=== PATIENT | male | born 1940 | race Caucasian/White ===

== ENCOUNTER 2017-08-14 08:26 | Outpatient (CLI) | payer BC, MEDICARE | END 2017-08-14 08:27 | disposition home or self-care (01) | LOC: BICULT 08:26 | PROVIDERS: ATTEND Internal Medicine Nephrology | DX: N18.3 Chronic kidney disease, stage 3 (moderate) (principal) | CPT/HCPCS: 76770 ==

== ENCOUNTER 2017-11-28 09:00 | Outpatient (CLI) | payer BC, MEDICARE | END 2017-11-28 09:01 | disposition home or self-care (01) | LOC: BICULT 09:00 | PROVIDERS: ATTEND Family Medicine | DX: Z13.6 Encounter for screening for cardiovascular disorders (principal) | CPT/HCPCS: 76775 ==

== ENCOUNTER 2018-07-25 08:00 | Inpatient (IN) | payer BC, MEDICARE ==
[2018-08-01 12:26] VITALS: BMI 27.5
[2018-08-06] MEDS ORDERED: Midazolam HCl 2 mg/2 ml Vial ONE (06:22)
[2018-08-06] MEDS ORDERED: Ropivacaine 0.2% HCl/PF 20 ML ONE (06:22)
[2018-08-06] MEDS ORDERED: Fentanyl 100 MCG/2 ML VIAL ONE (06:22)
[2018-08-06] MEDS ORDERED: Lidocaine 1% (PF) 30 ML VIAL ONE (06:49)
[2018-08-06] MEDS ORDERED: Bupivacaine HCl 0.5%/Epinephrine 1:200,000/PF 30 ml Vial ONE (06:49)
[2018-08-06] MEDS ORDERED: Neomycin-Polymyxin 1 ML AMP ONE (06:49)
[2018-08-06] MEDS ORDERED: Tranexamic Acid 1,000 MG/10 ML VIAL ONE ×2 (07:24→10:33)
[2018-08-06] MEDS ORDERED: CEFAZOLIN 2 GM/50 ML BAG ONE (07:24)
[2018-08-06] MEDS ORDERED: Sodium Chloride 0.9% 100 ML ONE (07:24)
[2018-08-06] MEDS ORDERED: Ketorolac Tromethamine 30 MG/ML VIAL IVP PRN (07:41)
[2018-08-06] MEDS ORDERED: Ropivacaine HCl/PF 250 ML in Premix Bag 1 BAG NERVE BLCK SCH (07:41)
[2018-08-06] MEDS ORDERED: traMADol HCl 50 MG TAB PO PRN ×2 (07:45)
[2018-08-06] MEDS ORDERED: Fentanyl 100 MCG/2 ML VIAL SLOW IVP PRN (07:45)
[2018-08-06] MEDS ORDERED: HYDROcodone/Acetaminophen 10/325 mg Tablet PO PRN ×2 (07:45→09:48)
[2018-08-06] MEDS ORDERED: Promethazine HCl 25 MG/ML VIAL IM PRN ×3 (07:46→09:52)
[2018-08-06] MEDS ORDERED: Zolpidem Tartrate 5 MG TAB PO PRN (07:46)
[2018-08-06] MEDS ORDERED: Ondansetron PF 4 MG/2 ML Vial IVP PRN ×2 (07:46→09:48)
[2018-08-06] MEDS ORDERED: Morphine 4 MG/ML VIAL SLOW IVP PRN (09:48)
[2018-08-06] MEDS ORDERED: Acetaminophen 325 MG TAB PO PRN (09:48)
[2018-08-06] MEDS ORDERED: Promethazine HCl 25 MG/ML VIAL SLOW IVP PRN (09:52)
[2018-08-06] MEDS ORDERED: Ondansetron HCl/PF 4 MG/2 ML Vial IVP PRN (09:52)
[2018-08-06] MEDS ORDERED: TADALAFIL PO PRN (09:54)
[2018-08-06] MEDS ORDERED: Tranexamic Acid 1,000 MG in Sodium Chloride 0.9% 100 ML IVPB SCH (10:00)
[2018-08-06] MEDS ORDERED: Vancomycin HCl 1.5 GM in Sodium Chloride 0.9% 250 ML 300 ML IVPB SCH (10:00)
[2018-08-06] MEDS ORDERED: CEFAZOLIN/Water 2 GM/20 ML SYRINGE SLOW IVP SCH (10:00)
[2018-08-06] MEDS ORDERED: Ropivacaine 0.5% HCl/PF (150 MG/30 ML VIAL) ONE (10:12)
[2018-08-06] MEDS ORDERED: PHENYLEPHRINE-NS 100 MCG/ML 10 ML SYRINGE ONE (10:50)
[2018-08-06] MEDS ORDERED: Dexamethasone 20 MG/5 ML VIAL ONE (10:50)
[2018-08-06] MEDS ORDERED: PROPOFOL 200 MG/20 ML VIAL ONE (10:50)
[2018-08-06] MEDS ORDERED: Ondansetron PF 4 MG/2 ML Vial ONE (10:50)
[2018-08-06] MEDS ORDERED: Dextrose 50% Abboject 50 ML SYRINGE SLOW IVP PRN (11:32)
[2018-08-06] MEDS ORDERED: HumaLOG 300 UNITS/3 ML VIAL SC PRN (11:32)
[2018-08-06] MEDS ORDERED: Dextrose 5% in Water 1,000 ML IV PRN (11:32)
[2018-08-06] MEDS ORDERED: Acetaminophen 500 MG TAB PO PRN (11:56)
[2018-08-06] MEDS ORDERED: cloNIDine 0.1 MG TAB PO PRN (11:56)
[2018-08-06] MEDS ORDERED: Bisacodyl 5 MG TAB PO PRN (11:56)
[2018-08-06] MEDS ORDERED: Benzonatate 100 MG CAP PO PRN (11:56)
[2018-08-06] MEDS ORDERED: Nitroglycerin 0.4 MG TAB (25 Tab Bottle) SL PRN (11:56)
[2018-08-06] MEDS ORDERED: HYDROcodone/Acetaminophen 5/325 mg Tablet PO PRN (11:56)
[2018-08-06] MEDS ORDERED: Calcium Carbonate 500 MG ChewTAB PO PRN (11:56)
[2018-08-06] MEDS ORDERED: Diabetic Tussin 200 MG/10 ML UDCUP PO PRN (11:56)
[2018-08-06] MEDS ORDERED: hydrALAZINE 20 MG/ML VIAL SLOW IVP PRN (11:56)
--- NOTE | 2018-08-06 11:58 | PDOC.PN ---
- Subjective Encounter Start Date: 08/06/18 Encounter Start Time: 11:57 Subjective: s/p Left knee arthroplasty for hardware removal. -: seen and examined at bedside. chart reveiwed.PCP Dr. Scottie Orellana -: denies any CP/SOB/palpitations/Abd pain/N/V/D - Objective MAR Reviewed: Yes Vital Signs & Weight: Vital Signs (12 hours) Temp Pulse Resp BP Pulse Ox 08/06/18 10:55 97.5 F L 63 18 152/73 H 96 Weight Weight 192 lb Additional Labs: Laboratory Tests 08/01/18 08/01/18 13:05 13:05 WBC 8.1 Hgb 13.4 L Plt Count 253 Sodium 135 L Potassium 5.2 H Carbon Dioxide 22 L BUN 17 Creatinine 1.24 Phys Exam - Physical Examination Constitutional: NAD HEENT: PERRLA, moist MMs, sclera anicteric, oral pharynx no lesions Neck: no nodes, no JVD, supple, full ROM Respiratory: no wheezing, no rales, no rhonchi, clear to auscultation bilateral Cardiovascular: RRR, no significant murmur Gastrointestinal: soft, non-tender, no distention, positive bowel sounds Musculoskeletal: no edema, pulses present Neurological: non-focal, normal sensation, moves all 4 limbs Psychiatric: normal affect, A&O x 3 Skin: no rash Dx/Plan (1) Hyperkalemia Code(s): E87.5 - HYPERKALEMIA Status: Acute Comment: 08/01/18. will recheck (2) Paroxysmal atrial fibrillation Code(s): I48.0 - PAROXYSMAL ATRIAL FIBRILLATION Status: Chronic Comment: on Multaq and Eliquis at home. NSR for now.Business Advisor is . (3) CAD (coronary artery disease) Code(s): I25.10 - ATHSCL HEART DISEASE OF [place] CORONARY ARTERY W/O ANG PCTRS Status: Chronic Qualifiers: Coronary Disease-Associated Artery/Lesion type: bypass graft Comment: CABG 2000. On ASA,statin ,BB and ARMIN-I (4) HTN (hypertension) Code(s): I10 - ESSENTIAL (PRIMARY) HYPERTENSION Status: Chronic (5) DM2 (diabetes mellitus, type 2) Status: Chronic Qualifiers: Diabetes mellitus manager long term care insulin use: without manager long term care use (6) S/P left knee arthroscopy Code(s): Z98.890 - OTHER SPECIFIED POSTPROCEDURAL STATES Status: Acute - Plan plan discussed w/ family, PT/OT, incentive spirometry, out of bed/ambulate, DVT proph w/SCDs Eliquis on hold in immediate post-op period. cont ASA BID. NSR for now -: cont rest of the home meds as below,except will hold metformin -: am labs.follow BMP and H/H -: add ISS and prn anti-hypertensives -: OT/PT,pain control.rehab as an OP .IM team will follow * . Review of Systems - Review of Systems Constitutional: negative: fever, chills, sweats, weakness, malaise, other ENT: negative: Ear Pain, Ear Discharge, Nose Pain, Nose Discharge, Nose Congestion, Mouth Pain, Mouth Swelling, Throat Pain, Throat Swelling, Other Respiratory: negative: Cough, Dry, Shortness of Breath, Hemoptysis, SOB with Excertion, Pleuritic Pain, Sputum, Wheezing Cardiovascular: negative: chest pain, palpitations, orthopnea, paroxysmal nocturnal dyspnea, edema, light headedness, other Gastrointestinal: negative: Nausea, Vomiting, Abdominal Pain, Diarrhea, Constipation, Melena, Hematochezia, Other Genitourinary: negative: Dysuria, Frequency, Incontinence, Hematuria, Retention , Other Musculoskeletal: negative: Neck Pain, Shoulder Pain, Arm Pain, Back Pain, Hand Pain, Leg Pain, Foot Pain, Other Skin: negative: Rash, Lesions, Gavin, Bruising, Other Neurological: negative: Weakness, Numbness, Incoordination, Change in Speech, Confusion, Seizures, Other - Medications/Allergies Allergies/Adverse Reactions: Allergies Allergy/AdvReac Type Severity Reaction Status Date / Time No Known Allergies Allergy Verified 08/01/18 12:27 Medications: Current Medications Acetaminophen (Tylenol) 650 mg PO Q4H PRN PRN Reason: Headache/Fever or Pain Acetaminophen (Tylenol) 1,000 mg PO Q6H PRN PRN Reason: Mild Pain (1-3) Hydrocodone Bitart/Acetaminophen ([place] 10/325) 1 tab PO Q4H PRN PRN Reason: Pain (1-3) Hydrocodone Bitart/Acetaminophen ([place] 10/325) 2 tab PO Q4H PRN PRN Reason: PAIN (4-6) Hydrocodone Bitart/Acetaminophen ([place] 5/325) 1 tab PO Q4H PRN PRN Reason: Moderate Pain (4-6) Aspirin (Ecotrin) 81 mg PO BID [place] Atorvastatin Calcium (Lipitor) 40 mg PO HS [place] Benzonatate (Tessalon) 100 mg PO Q6H PRN PRN Reason: Cough Bisacodyl (Dulcolax) 10 mg PO DAILYPRN PRN PRN Reason: Constipation Calcium Carbonate (Tums) 1,000 mg PO Q4H PRN PRN Reason: Heartburn or Indigestion Carvedilol (Coreg) 12.5 mg PO BID [facility] Clonidine (Catapres) 0.1 mg PO Q4H PRN PRN Reason: SBP > 160____ Dextrose/Water (Dextrose 50%) 25 gm SLOW IVP PRN PRN PRN Reason: Hypoglycemia Dronedarone (Multaq) 400 mg PO BID-[facility] Fentanyl (Sublimaze) 50 mcg SLOW IVP Q1H PRN PRN Reason: Breakthrough Pain Ferrous Gluconate (Fergon) 324 mg PO BID [facility] Glipizide (Glucotrol) 5 mg PO QAM [facility] Glucagon (Glucagon) 1 mg IM PRN PRN PRN Reason: Hypoglycemia Guaifenesin (Robitussin Sf) 200 mg PO Q4H PRN PRN Reason: Cough Hydralazine HCl (Apresoline) 10 mg SLOW IVP Q4H PRN PRN Reason: SBP > 180 and HR < 70 Ropivacaine 250 ml/ Device 250 mls @ 10 mls/hr [facility] Sodium Chloride (Normal Saline 0.9%) 1,000 mls @ 100 mls/hr IV .Q10H [facility] Tranexamic Acid 1,000 mg/ (Sodium Chloride) 110 mls @ 200 mls/hr IVPB ONE [facility] Stop: 08/06/18 15:00 Cefazolin Sodium/Dextrose 2 gm (/ Device) 50 mls @ 100 mls/hr IVPB 0000,1600 [facility] Stop: 08/07/18 00:29 Dextrose/Water (D5w) 1,000 mls @ 0 mls/hr IV .Q0M PRN PRN Reason: Hypoglycemia Insulin Human Lispro (Humalog) 0 units SC .MODERATE SLIDING SC PRN PRN Reason: Moderate Correctional Scale Insulin Human Lispro (Humalog) 0 units SC .BEDTIME SLIDING SC PRN PRN Reason: Bedtime Correctional Scale Iron/Minerals/Multivitamins (Theragran M) 1 tab PO DAILY [facility] Ketorolac Tromethamine (Toradol) 15 mg IVP Q6H PRN PRN Reason: Moderate Pain (4-6) Stop: 08/09/18 07:42 Lisinopril (Zestril) 2.5 mg PO DAILY [facility] Nitroglycerin (Nitrostat) 0.4 mg SL Q5MIN PRN PRN Reason: Chest Pain (Linagliptin [ (Tradjenta] 1 Tab)) 1 tab PO QAM [facility] Ondansetron HCl (Zofran) 4 mg IVP Q6H PRN PRN Reason: Nausea/Vomiting Ondansetron HCl (Pacu-Zofran) 4 mg IVP ONE PRN PRN Reason: Nausea/Vomiting Stop: 08/06/18 12:52 Ondansetron HCl (Zofran) 4 mg IVP Q6H PRN PRN Reason: Nausea/Vomiting Promethazine HCl (Phenergan) 12.5 mg IM Q4H PRN PRN Reason: Nausea Promethazine HCl (Pacu-Phenergan) 6.25 mg SLOW IVP ONE PRN PRN Reason: Nausea/Vomiting Stop: 08/06/18 12:52 Promethazine HCl (Pacu-Phenergan) 6.25 mg IM ONE PRN PRN Reason: Nausea/Vomiting Stop: 08/06/18 12:52 Senna/Docusate Sodium (Senokot S) 2 tab PO BID [facility] Sodium Chloride (Flush - Normal Saline) 10 ml IVF PRN PRN PRN Reason: Saline Flush Tramadol HCl (Ultram) 50 mg PO Q6H PRN PRN Reason: Mild Pain (1-3) Tramadol HCl (Ultram) 100 mg PO Q6H PRN PRN Reason: Moderate Pain 4-6 Zolpidem Tartrate (Ambien) 5 mg PO HSPRN PRN PRN Reason: Insomnia
[2018-08-06] MEDS: Sodium Chloride 0.9% 1,000 ML IV SCH ×2 (13:56→20:39)
[2018-08-06] MEDS: CEFAZOLIN 2 GM/50 ML-DEXTROSE 2 GM in Premix Bag 1 BAG IVPB SCH ×2 (15:10→23:49)
[2018-08-06] MEDS: Dronedarone HCl 400 MG TAB PO SCH (16:57)
[2018-08-06] MEDS: HumaLOG 300 UNITS/3 ML VIAL SC PRN ×2 (18:46→21:11)
[2018-08-06] MEDS: Carvedilol 6.25 MG TAB PO SCH (20:36)
[2018-08-06] MEDS: Atorvastatin Calcium 40 MG TAB PO SCH (20:36)
[2018-08-06] MEDS: Aspirin 81 mg Enteric Coated Tablet PO SCH (20:37)
[2018-08-07] MEDS: Sodium Chloride 0.9% 1,000 ML IV SCH ×2 (02:46→13:13)
[2018-08-07 05:07] LABS: Hemoglobin 10.4 g/dL (14.0-18.0); Mean Corpuscular HGB CONC 33.6 g/dL (32.0-36.0); Mean Corpuscular Hemoglobin 32.7 pg (27.0-31.0); Mean Corpuscular Volume 97.1 fL (78.0-98.0); Mean Platelet Volume 7.6 fL (7.4-10.4); Platelet Count 187 thou/uL (130-400); RBC Distribution Width 11.9 % (11.5-14.5); Red Blood Cell (RBC) Count 3.18 mill/uL (4.70-6.10); White Blood Cell (WBC) Count 13.7 thou/uL (4.8-10.8)
[2018-08-07] MEDS ORDERED: metFORMIN 500 MG TAB PO SCH (08:00)
[2018-08-07] MEDS: HYDROcodone/Acetaminophen 10/325 mg Tablet PO PRN ×3 (09:16→20:09)
[2018-08-07] MEDS: glipiZIDE 5 MG TAB PO SCH (09:17)
[2018-08-07] MEDS: Apixaban 5 MG TAB PO SCH ×2 (09:17→20:10)
[2018-08-07] MEDS: Ferrous Gluconate 324 MG TAB PO SCH ×2 (09:18→20:10)
[2018-08-07] MEDS: Senokot S 8.6-50 MG TAB PO SCH ×2 (09:18→20:10)
[2018-08-07] MEDS: Multivitamin W/ Minerals 1 TAB PO SCH (09:18)
[2018-08-07] MEDS: Lisinopril 2.5 MG TAB PO SCH (09:19)
[2018-08-07] MEDS: Carvedilol 6.25 MG TAB PO SCH ×2 (09:19→20:10)
[2018-08-07] MEDS: Dronedarone HCl 400 MG TAB PO SCH ×2 (09:19→18:35)
[2018-08-07] MEDS: Alogliptin 25 MG TAB PO SCH (09:19)
[2018-08-07] MEDS: Aspirin 81 mg Enteric Coated Tablet PO SCH (13:12)
[2018-08-07 13:19] LABS: Anion Gap 14 mmol/L (10-20); BUN (Urea Nitrogen) 18 mg/dL (8.4-25.7); Calc. Creatinine Clearance 51 mL/min (70-130); Calcium 8.4 mg/dL (7.8-10.44); Carbon Dioxide 21 mmol/L (23-31); Chloride 103 mmol/L (98-107); Estimated GFR-MDRD 45; Glucose 291 mg/dL (83-110); Sodium 133 mmol/L (136-145)
--- NOTE | 2018-08-07 13:26 | OP ---
DATE OF PROCEDURE: 08/06/2018 PREOPERATIVE DIAGNOSIS: Osteoarthritis, left knee posttraumatic. POSTOPERATIVE DIAGNOSIS: Osteoarthritis, left knee posttraumatic. PROCEDURES PERFORMED: 1. Left total knee arthroplasty. 2. Hardware removal, left tibia. ANESTHESIA: General. THRESHING OPERATOR: LOIDA Cohn. COMPLICATION: None. CONDITION: Good. ESTIMATED BLOOD LOSS: Minimal. DRAINS: None. TOURNIQUET: Per Anesthesia. TECHNIQUE: Simple stain. DESCRIPTION OF PROCEDURE: The patient was taken to the operating room, placed in supine position. After adequate general anesthesia had been achieved, the patient's left knee was examined. The patient had significant varus deformity, crepitus with motion, moderate effusion, flexion limited to 120 degrees, lacked 5 degrees to full extension. The left knee and lower extremity were then positioned, prepped, and draped in usual sterile fashion. Tourniquet was placed in left upper thigh. Leg was elevated and exsanguinated. Tourniquet was inflated prior to incision. The previous medial arthrotomy incision was extended proximally and distally. It was taken down to subcutaneous tissues. Full thickness flaps were obtained. The previous medial parapatellar arthrotomy was taken through the deep tissues. The patient had moderate amount of clear joint fluid, severe arthrosis of the medial compartment, patellofemoral that had erosive changes through the implant into the distal femoral condyle. Using intramedullary guide, distal 5-degree valgus resection on the femur was performed. Using AP and epicondylar axis, proper rotation, position, a size 6 Evolution femur was placed. The anterior and posterior chamfer cuts were completed for the size 6 Evolution femur. Tibia was then subluxed anteriorly. The tibial plateau plate was carefully exposed, and the proximal and distal screws were removed through a small portal. The collateral ligaments remained intact, and the tibia was resected at appropriate level from the severe medial erosive area. The menisci and cruciate ligaments were debrided, and the flexion and extension gaps were then checked with 10 and 12 mm spacers at 0 and 90 degrees. Good balancing was noted. The patella was then measured approximately 8 to 9 mm resection performed, and a 35 mm patella was medialized. The trial components were then placed, 6 femur, 6 tibia, 35 patella with a 12-mm bearing surface, put through range of motion. The patient had full flexion and extension, good balancing and patellofemoral tracking and alignment. The tibial baseplate was then marked, prepared with the broach. All surfaces were irrigated copiously. Femur, tibia, and patella cemented. Excess cement removed. It was allowed to harden with the 12-mm bearing surface. This was again tested for stability and alignment. The 12 was chosen, snap fit. After copious irrigation, the arthrotomy was closed with #2 Mersilene and #1 Vicryl, the subcu with 0 and 2-0 Vicryl and the skin with nataly. A sterile bulky dressing was applied. The patient was taken to Recovery in stable condition. PROGNOSIS: Good. Job ID: [id number]
--- NOTE | 2018-08-07 14:26 | PDOC.PN ---
- Subjective Encounter Start Date: 08/07/18 Encounter Start Time: 14:24 Subjective: feels well. no new complaints - Objective MAR Reviewed: Yes Vital Signs & Weight: Vital Signs (12 hours) Temp Pulse Resp BP Pulse Ox 08/07/18 08:15 98.1 F 70 17 150/73 H 95 08/07/18 04:38 98.2 F 74 17 128/74 95 Weight Admit Weight 192 lb Weight 192 lb I&O: 08/06/18 08/07/18 08/08/18 06:59 06:59 06:59 Output Total 900 Balance -900 Result Diagrams: 08/07/18 04:18 08/07/18 12:41 Additional Labs: Accuchecks 08/07/18 08/06/18 06:06 15:55 POC Glucose 215 H 406 H Laboratory Tests 08/01/18 08/01/18 08/07/18 13:05 13:05 04:18 Hgb 13.4 L 10.4 L Creatinine 1.24 08/07/18 12:41 Hgb Creatinine 1.52 H Phys Exam - Physical Examination Constitutional: NAD HEENT: PERRLA, moist MMs, sclera anicteric, oral pharynx no lesions Neck: no nodes, no JVD, supple, full ROM Respiratory: no wheezing, no rales, no rhonchi, clear to auscultation bilateral Cardiovascular: RRR, no significant murmur Gastrointestinal: soft, non-tender, no distention, positive bowel sounds Musculoskeletal: no edema, pulses present Neurological: non-focal, normal sensation, moves all 4 limbs Psychiatric: normal affect, A&O x 3 Skin: no rash Dx/Plan (1) JOSE (acute kidney injury) Code(s): N17.9 - ACUTE KIDNEY FAILURE, UNSPECIFIED Status: Acute (2) Hyperkalemia Code(s): E87.5 - HYPERKALEMIA Status: Acute Comment: 08/01/18.resolved (3) Paroxysmal atrial fibrillation Code(s): I48.0 - PAROXYSMAL ATRIAL FIBRILLATION Status: Chronic Comment: on Multaq and Eliquis at home. NSR for now.Assistant Store Leader is . eliquis resterted today (4) CAD (coronary artery disease) Code(s): I25.10 - ATHSCL HEART DISEASE OF [place] CORONARY ARTERY W/O ANG PCTRS Status: Chronic Qualifiers: Coronary Disease-Associated Artery/Lesion type: bypass graft Comment: CABG 2000. On ASA,statin ,BB and ARMIN-I (5) HTN (hypertension) Code(s): I10 - ESSENTIAL (PRIMARY) HYPERTENSION Status: Chronic (6) DM2 (diabetes mellitus, type 2) Status: Chronic Qualifiers: Diabetes mellitus medical terminologist insulin use: without assisted use (7) S/P left knee arthroscopy Code(s): Z98.890 - OTHER SPECIFIED POSTPROCEDURAL STATES Status: Acute - Plan DVT proph w/SCDs cont IVF and recheck renal Fx in am -: H/H slightly lower.monitor -: DC ASA as Eliquis resterted -: HD stable -: will follow * . Review of Systems - Review of Systems Constitutional: negative: fever, chills, sweats, weakness, malaise, other ENT: negative: Ear Pain, Ear Discharge, Nose Pain, Nose Discharge, Nose Congestion, Mouth Pain, Mouth Swelling, Throat Pain, Throat Swelling, Other Respiratory: negative: Cough, Dry, Shortness of Breath, Hemoptysis, SOB with Excertion, Pleuritic Pain, Sputum, Wheezing Cardiovascular: negative: chest pain, palpitations, orthopnea, paroxysmal nocturnal dyspnea, edema, light headedness, other Gastrointestinal: negative: Nausea, Vomiting, Abdominal Pain, Diarrhea, Constipation, Melena, Hematochezia, Other Genitourinary: negative: Dysuria, Frequency, Incontinence, Hematuria, Retention , Other Musculoskeletal: negative: Neck Pain, Shoulder Pain, Arm Pain, Back Pain, Hand Pain, Leg Pain, Foot Pain, Other Neurological: negative: Weakness, Numbness, Incoordination, Change in Speech, Confusion, Seizures, Other - Medications/Allergies Allergies/Adverse Reactions: Allergies Allergy/AdvReac Type Severity Reaction Status Date / Time No Known Allergies Allergy Verified 08/01/18 12:27 Medications: Current Medications Acetaminophen (Tylenol) 650 mg PO Q4H PRN PRN Reason: Headache/Fever or Pain Acetaminophen (Tylenol) 1,000 mg PO Q6H PRN PRN Reason: Mild Pain (1-3) Hydrocodone Bitart/Acetaminophen ([place] 10/325) 1 tab PO Q4H PRN PRN Reason: Pain (1-3) Hydrocodone Bitart/Acetaminophen ([place] 10/325) 2 tab PO Q4H PRN PRN Reason: PAIN (4-6) Last Admin: 08/07/18 14:01 Dose: 2 tab Hydrocodone Bitart/Acetaminophen ([place] 5/325) 1 tab PO Q4H PRN PRN Reason: Moderate Pain (4-6) Alogliptin Benzoate (Alogliptin) 25 mg PO DAILY [facility] Last Admin: 08/07/18 09:19 Dose: 25 mg Apixaban (Eliquis) 5 mg PO BID [facility] Last Admin: 08/07/18 09:17 Dose: 5 mg Atorvastatin Calcium (Lipitor) 40 mg PO HS [facility] Last Admin: 08/06/18 20:36 Dose: 40 mg Benzonatate (Tessalon) 100 mg PO Q6H PRN PRN Reason: Cough Bisacodyl (Dulcolax) 10 mg PO DAILYPRN PRN PRN Reason: Constipation Calcium Carbonate (Tums) 1,000 mg PO Q4H PRN PRN Reason: Heartburn or Indigestion Carvedilol (Coreg) 12.5 mg PO BID [facility] Last Admin: 08/07/18 09:19 Dose: 12.5 mg Clonidine (Catapres) 0.1 mg PO Q4H PRN PRN Reason: SBP > 160____ Dextrose/Water (Dextrose 50%) 25 gm SLOW IVP PRN PRN PRN Reason: Hypoglycemia Dronedarone (Multaq) 400 mg PO BID-[facility] Last Admin: 08/07/18 09:19 Dose: 400 mg Fentanyl (Sublimaze) 50 mcg SLOW IVP Q1H PRN PRN Reason: Breakthrough Pain Ferrous Gluconate (Fergon) 324 mg PO BID [facility] Last Admin: 08/07/18 09:18 Dose: 324 mg Glipizide (Glucotrol) 5 mg PO QAM [facility] Last Admin: 08/07/18 09:17 Dose: 5 mg Glucagon (Glucagon) 1 mg IM PRN PRN PRN Reason: Hypoglycemia Guaifenesin (Robitussin Sf) 200 mg PO Q4H PRN PRN Reason: Cough Hydralazine HCl (Apresoline) 10 mg SLOW IVP Q4H PRN PRN Reason: SBP > 180 and HR < 70 Ropivacaine 250 ml/ Device 250 mls @ 10 mls/hr NERVE BLCK INF [facility] Last Admin: 08/07/18 10:55 Dose: 250 mls Sodium Chloride (Normal Saline 0.9%) 1,000 mls @ 100 mls/hr IV .Q10H [facility] Last Admin: 08/07/18 13:13 Dose: Not Given Dextrose/Water (D5w) 1,000 mls @ 0 mls/hr IV .Q0M PRN PRN Reason: Hypoglycemia Insulin Human Lispro (Humalog) 0 units SC .MODERATE SLIDING SC PRN PRN Reason: Moderate Correctional Scale Last Admin: 08/06/18 21:11 Dose: 4 unit Insulin Human Lispro (Humalog) 0 units SC .BEDTIME SLIDING SC PRN PRN Reason: Bedtime Correctional Scale Iron/Minerals/Multivitamins (Theragran M) 1 tab PO DAILY [facility] Last Admin: 08/07/18 09:18 Dose: 1 tab Lisinopril (Zestril) 2.5 mg PO DAILY [facility] Last Admin: 08/07/18 09:19 Dose: 2.5 mg Nitroglycerin (Nitrostat) 0.4 mg SL Q5MIN PRN PRN Reason: Chest Pain Ondansetron HCl (Zofran) 4 mg IVP Q6H PRN PRN Reason: Nausea/Vomiting Ondansetron HCl (Zofran) 4 mg IVP Q6H PRN PRN Reason: Nausea/Vomiting Promethazine HCl (Phenergan) 12.5 mg IM Q4H PRN PRN Reason: Nausea Senna/Docusate Sodium (Senokot S) 2 tab PO BID [facility] Last Admin: 08/07/18 09:18 Dose: 2 tab Sodium Chloride (Flush - Normal Saline) 10 ml IVF PRN PRN PRN Reason: Saline Flush Tramadol HCl (Ultram) 50 mg PO Q6H PRN PRN Reason: Mild Pain (1-3) Tramadol HCl (Ultram) 100 mg PO Q6H PRN PRN Reason: Moderate Pain 4-6 Zolpidem Tartrate (Ambien) 5 mg PO HSPRN PRN PRN Reason: Insomnia
[2018-08-07] MEDS: HumaLOG 300 UNITS/3 ML VIAL SC PRN (18:36)
[2018-08-07] MEDS: Atorvastatin Calcium 40 MG TAB PO SCH (20:10)
[2018-08-08] MEDS: Sodium Chloride 0.9% 1,000 ML IV SCH ×2 (03:10→12:51)
[2018-08-08 05:26] LABS: Hemoglobin 9.2 g/dL (14.0-18.0); Mean Corpuscular HGB CONC 33.7 g/dL (32.0-36.0); Mean Corpuscular Hemoglobin 32.9 pg (27.0-31.0); Mean Corpuscular Volume 97.8 fL (78.0-98.0); Mean Platelet Volume 7.5 fL (7.4-10.4); Platelet Count 160 thou/uL (130-400); RBC Distribution Width 12.1 % (11.5-14.5); Red Blood Cell (RBC) Count 2.78 mill/uL (4.70-6.10); White Blood Cell (WBC) Count 10.5 thou/uL (4.8-10.8)
[2018-08-08 05:48] LABS: Anion Gap 13 mmol/L (10-20); BUN (Urea Nitrogen) 25 mg/dL (8.4-25.7); Calc. Creatinine Clearance 52 mL/min (70-130); Calcium 8.1 mg/dL (7.8-10.44); Carbon Dioxide 20 mmol/L (23-31); Chloride 105 mmol/L (98-107); Estimated GFR-MDRD 46; Glucose 181 mg/dL (83-110); Potassium 4.5 mmol/L (3.5-5.1); Sodium 133 mmol/L (136-145)
[2018-08-08] MEDS: HumaLOG 300 UNITS/3 ML VIAL SC PRN ×2 (06:16→12:07)
[2018-08-08] MEDS ORDERED: metFORMIN 500 MG TAB PO SCH (08:00)
[2018-08-08] MEDS: HYDROcodone/Acetaminophen 10/325 mg Tablet PO PRN ×2 (08:41→12:34)
[2018-08-08] MEDS: Dronedarone HCl 400 MG TAB PO SCH (08:43)
[2018-08-08] MEDS: Lisinopril 2.5 MG TAB PO SCH (08:44)
[2018-08-08] MEDS: Senokot S 8.6-50 MG TAB PO SCH (08:45)
[2018-08-08] MEDS: glipiZIDE 5 MG TAB PO SCH (08:45)
[2018-08-08] MEDS: Carvedilol 6.25 MG TAB PO SCH (08:46)
[2018-08-08] MEDS: Alogliptin 25 MG TAB PO SCH (08:46)
[2018-08-08] MEDS: Multivitamin W/ Minerals 1 TAB PO SCH (08:46)
[2018-08-08] MEDS: Ferrous Gluconate 324 MG TAB PO SCH (08:47)
[2018-08-08] MEDS ORDERED: Apixaban 5 MG TAB PO SCH ×2 (09:00)
[2018-08-08] MEDS ORDERED: Non-Formulary Item 1 EACH (Metformin Hcl [Metformin Hcl] 1,000 MG) PO SCH (09:00)
[2018-08-08] MEDS ORDERED: Cyanocobalamin (Vitamin B-12) 1,000 MCG TAB PO SCH (09:00)
[2018-08-08 12:00] VITALS: BP 93/52; TEMP 98
== END 2018-08-08 12:57 | disposition home or self-care (01) | DRG 470 ==
LOC: SURG A 08-06 05:56 → SJJU 08-06 10:32
PROVIDERS: ADMIT Orthopaedic Surgery; ATTEND Orthopaedic Surgery
PROC: 0SRD0J9 Replacement of Left Knee Joint with Synthetic Substitute, Cemented, Open Approach (ICD-10-PCS; principal; 2018-08-06)
PROC: 0QPH04Z Removal of Internal Fixation Device from Left Tibia, Open Approach (ICD-10-PCS; 2018-08-06)
DX: M17.32 Unilateral post-traumatic osteoarthritis, left knee (principal); N17.9 Acute kidney failure, unspecified; E87.5 Hyperkalemia; I48.0 Paroxysmal atrial fibrillation; I25.10 Atherosclerotic heart disease of native coronary artery without angina pectoris; I10 Essential (primary) hypertension; E11.9 Type 2 diabetes mellitus without complications
CPT/HCPCS: 36415; 36416; 80048; 85027; C1713; C1776; J0670; J1100; J2001; J2250; J2405; J2704; J2795; J3010; J3370; J7050

== ENCOUNTER 2018-08-01 04:46 | Outpatient (CLI) | payer BC, MEDICARE ==
[2018-08-01 13:32] LABS: Hemoglobin 13.4 g/dL (14.0-18.0); Mean Corpuscular HGB CONC 32.4 g/dL (32.0-36.0); Mean Corpuscular Hemoglobin 31.6 pg (27.0-31.0); Mean Corpuscular Volume 97.5 fL (78.0-98.0); Mean Platelet Volume 7.5 fL (7.4-10.4); Platelet Count 253 thou/uL (130-400); RBC Distribution Width 11.9 % (11.5-14.5); Red Blood Cell (RBC) Count 4.24 mill/uL (4.70-6.10); White Blood Cell (WBC) Count 8.1 thou/uL (4.8-10.8)
[2018-08-01 13:37] LABS: INR-International Normal Ratio 1.4; PTT 33.4 SEC (22.9-36.1); Prothrombin Time 17.6 SEC (12.0-14.7)
[2018-08-01 13:50] LABS: Anion Gap 12 mmol/L (10-20); BUN (Urea Nitrogen) 17 mg/dL (8.4-25.7); Calc. Creatinine Clearance 0 mL/min (70-130); Calcium 9.6 mg/dL (7.8-10.44); Carbon Dioxide 22 mmol/L (23-31); Chloride 106 mmol/L (98-107); Estimated GFR-MDRD 57; Glucose 100 mg/dL (83-110); Potassium 5.2 mmol/L (3.5-5.1); Sodium 135 mmol/L (136-145)
== END 2018-08-01 04:47 | disposition home or self-care (01) ==
LOC: LABBT 04:46
PROVIDERS: ATTEND Orthopaedic Surgery
DX: Z01.812 Encounter for preprocedural laboratory examination (principal); M17.12 Unilateral primary osteoarthritis, left knee
CPT/HCPCS: 80048; 85027; 85610; 85730; 86850; 86900; 86901; 87081

== ENCOUNTER 2019-07-01 14:05 | Observation (INO) | payer BC, MEDICARE ==
[~2019-07-01 14:05] MED LIST: Lidocaine 1% PF 5 ML VIAL ONE; Ondansetron PF 4 MG/2 ML Vial ONE; PHENYLEPHRINE-NS 100 MCG/ML 10 ML SYRINGE ONE; PROPOFOL 200 MG/20 ML VIAL ONE; Rocuronium Bromide 10 MG/ML (10ML VIAL) ONE; ePHEDrine/0.9% NaCl/PF SYRINGE 50 mg/10 ml ONE
[2019-07-01 14:56] LABS: #Eosinphils 0.3 thou/uL (0.0-0.7); #Lymphocytes 1.3 thou/uL (1.20-3.40); #Monocytes 0.7 thou/uL (0.11-0.59); #Neutrophils 6.9 thou/uL (1.40-6.50); %Basophils 0.4 % (0.0-1.0); %Eosinophils 3.2 % (0.0-10.0); %Lymphocytes 14.3 % (21.0-51.0); %Monocytes 7.5 % (0.0-10.0); %Neutrophils 74.6 % (42.0-75.0); Hemoglobin 12.4 g/dL (14.0-18.0); Mean Corpuscular HGB CONC 33.5 g/dL (32.0-36.0); Mean Corpuscular Hemoglobin 31.5 pg (27.0-31.0); Mean Corpuscular Volume 93.9 fL (78.0-98.0); Mean Platelet Volume 7.4 fL (7.4-10.4); Platelet Count 197 thou/uL (130-400); Red Blood Cell (RBC) Count 3.94 mill/uL (4.70-6.10); White Blood Cell (WBC) Count 9.2 thou/uL (4.8-10.8)
--- NOTE | 2019-07-01 14:58 | RAD ---
EXAM: XR Hand Rt 3 View STANDARD PROVIDED CLINICAL HISTORY: Laceration FINDINGS: There is no evidence for fracture or other acute osseous abnormality. Alignment appears anatomic. Valentina nt spaces appear preserved. Cutaneous deficiency at the lateral margin of the distal first metacarpal, compatible with the provided clinical history of laceration. No evidence for radiopaque f oreign body. IMPRESSION: No evidence for an acute osseous abnormality. If there is persistent clinical concern, conservative m anagement and follow-up imaging advised.
[2019-07-01 15:07] LABS: INR-International Normal Ratio 1.4; Prothrombin Time 16.8 SEC (12.0-14.7)
[2019-07-01 15:11] LABS: ALT (SGPT) 18 U/L (8-55); AST (SGOT) 15 U/L (5-34); Albumin 3.6 g/dL (3.4-4.8); Alkaline Phosphatase 72 U/L (40-110); Anion Gap 13 mmol/L (10-20); BUN (Urea Nitrogen) 25 mg/dL (8.4-25.7); Bilirubin, Total 0.6 mg/dL (0.2-1.2); Calc. Creatinine Clearance 0 mL/min (70-130); Calcium 8.8 mg/dL (7.8-10.44); Carbon Dioxide 23 mmol/L (23-31); Chloride 107 mmol/L (98-107); Estimated GFR-MDRD 54; Globulin 2.9 g/dL (2.4-3.5); Glucose 168 mg/dL (83-110); Potassium 5.2 mmol/L (3.5-5.1); Protein, Total 6.5 g/dL (5.8-8.1); Sodium 138 mmol/L (136-145)
[2019-07-01] MEDS ORDERED: Thrombin 5000 UNITS/5 ML VIAL ONE (16:15)
[2019-07-01] MEDS ORDERED: Bacitracin Zinc Ointment 30 gm TUBE ONE (16:15)
[2019-07-01] MEDS ORDERED: Sodium Chloride 0.9% 30 ML ONE (16:15)
[2019-07-01] MEDS ORDERED: Bupivacaine PF 0.5% 30 ML VIAL ONE (16:15)
[2019-07-01] MEDS ORDERED: Gentamicin 80 MG/2 ML VIAL ONE (16:20)
[2019-07-01] MEDS ORDERED: Famotidine/PF 20 mg/2ml Vial ONE (17:35)
[2019-07-01] MEDS ORDERED: Fentanyl 100 MCG/2 ML VIAL ONE (17:44)
[2019-07-01] MEDS ORDERED: HYDROcodone/Acetaminophen 5/325 mg Tablet PO PRN (17:45)
[2019-07-01] MEDS ORDERED: Bisacodyl 10 MG SUPP PR PRN (17:45)
[2019-07-01] MEDS ORDERED: Milk Of Magnesia 30 ML UDCUP PO PRN (17:45)
[2019-07-01] MEDS ORDERED: Ondansetron PF 4 MG/2 ML Vial IV PRN (17:45)
[2019-07-01] MEDS ORDERED: Morphine 2 MG/ML SYRINGE SLOW IVP PRN (17:45)
[2019-07-01] MEDS ORDERED: Acetaminophen/Codeine 30-300mg Tablet PO PRN (17:45)
[2019-07-01] MEDS ORDERED: Acetaminophen 325 MG TAB PO PRN (17:45)
[2019-07-01] MEDS ORDERED: traMADol HCl 50 MG TAB PO PRN (17:45)
[2019-07-01] MEDS ORDERED: Communication Order-Pharmacy FS SCH (17:45)
[2019-07-01] MEDS ORDERED: Fentanyl 100 MCG/2 ML VIAL SLOW IVP PRN (17:45)
[2019-07-01] MEDS ORDERED: Meperidine HCl/PF 25 MG/ML VIAL IM PRN (17:50)
[2019-07-01] MEDS ORDERED: Ketorolac Tromethamine 30 MG/ML VIAL ONE (20:31)
[2019-07-01] MEDS ORDERED: Vancomycin HCl 1 GM in Premix Bag 1 BAG IVPB SCH (21:00)
[2019-07-01 21:18] VITALS: BMI 27.1
[2019-07-01] MEDS: Aspirin 81 mg Enteric Coated Tablet PO SCH (21:33)
[2019-07-01] MEDS ORDERED: Vancomycin 1.5 GRAM/300 ML BAG 1.5 GM in Premix Bag 1 BAG IVPB SCH (22:00)
[2019-07-01] MEDS: Ketorolac Tromethamine 30 MG/ML VIAL IVP SCH (23:25)
--- NOTE | 2019-07-02 02:35 | OP ---
DATE OF PROCEDURE: 07/01/2019 PREOPERATIVE DIAGNOSES: 1. Open proximal phalanx fracture with 3 cm wound, thumb, right. 2. Wound with extensor pollicis longus, superficialis and brevis laceration and retinacular laceration/intrinsics to the thumb. 3. cutaneous superficial radial nerve lacerations. POSTOPERATIVE DIAGNOSES: 1. Open proximal phalanx fracture with 3 cm wound, thumb, right. 2. Wound with extensor pollicis longus, superficialis and brevis laceration and retinacular laceration/intrinsics to the thumb. 3. cutaneous superficial radial nerve lacerations. 4. Minimal contamination, but did have open joint. PROCEDURES PERFORMED: 1. Debridement of open joint, right thumb interphalangeal. 2. Debridement of open fracture, thumb, proximal phalanx. 3. Open treatment, proximal phalanx fracture, right thumb. 4. Capsule repair, right thumb interphalangeal joint. 5. Retinacular repair, right thumb interphalangeal joint level. 6. Extensor pollicis brevis complete laceration repair. 7. Extensor pollicis longus complete laceration repair. 8. Repair of cutaneous branch superficial radial nerve, three separate branches under magnification. 9. 3.0 cm wound closure. 10. Short-arm splint application. COMPLICATIONS: None. SPECIMENS REMOVED: No specimen sent to the lab, only minimal particle seen but debridement was accomplished. ESTIMATED BLOOD LOSS: 25 mL. TOURNIQUET TIME: 60 minutes. INDICATIONS FOR PROCEDURE: The patient had a table saw contacted the hand approximately 4-1/2 hours prior to procedure. Because of open joint, gross contamination and possible compression fracture, acute irrigation and debridement and repairs as indicated, especially not over contaminated were recommended and accomplished. DESCRIPTION OF PROCEDURE: After successful general endotracheal anesthesia, the limb was prepped and draped. The patient then had the wound evaluated and sterile tourniquet had been applied. Tourniquet inflated at 250 mmHg pressure. We extended his 3 cm transverse laceration, 2.5 cm proximal 2 cm distal. Here, we dissected down subcutaneous tissue and we saw the nerve bundles lacerated as described above. We saw open joint and then by finding the capsule, as well as the EPB insertion. We noticed just proximal to this impression fracture, 1 cm wide, 2 mm deep, and approximately 1.5 mm indented from the joint. There was a 3 mm area of extensor pollicis brevis thickness still intact in its entire width at its insertion at this point and the extensor pollicis longus visualized. The retinaculum also lacerated greater on the radial side of the thumb to the ulnar side. Once identified, the extensor pollicis longus and pollicis brevis, and the retinaculum as intrinsic, we then began debridement. There was minimal particle found x2. This was lifted up via gross dissection using tenotomy scissors. We then used tenotomy scissors, [place] blade, 11 blade knife, curette to debride both the bone and the wound. We irrigated with 3 L normal saline and Pulsavac pressure with antibiotics inside and another 2 L without antibiotics. We completely evaluated the joint, retracted and irrigated, debrided this area using same techniques. There was excisional technique used for the skin as well as the debris, and there were no complications or gross infection seen. After complete debridement listed above, the wound edges were also debrided 1 mm circumferentially in the area, where the laceration was made and we began our repairs. First, we repaired the capsule where remnant was left with interrupted 2-0 Vicryl in a mattress pattern buried knot. Then, we repaired the retinaculum on the thumb radial side using 4-0 Prolene and multiple separate [id number] sutures. We then used a [id number] suture to repair the EPB with the thumb in hyperextension at 30 degrees IP joint and then at the metacarpophalangeal joint 10 degrees hyperextension. We used multiple [id number] sutures . We then used the same technique to repair the extensor pollicis longus. Now, the MP joint and the interphalangeal joint had hyperextension added to. We then repaired the retinaculum on the ulnar side in the webspace with interrupted 4-0 Prolene [id number]. Now, the repairs had been done, we then turned our attention to the cutaneous nerves. Using loupe magnification, we found cutaneous neurovascular bundles, make sure there was no bleeding from the vessels and then repaired first the most radial branch which was partially lacerated using 9-0 Nurolon suture. Next, the dorsal radial branch was repaired with the same technique with multiple simple sutures with 8-0 nylon under magnification and then the webspace area underwent repair of each of the branches cutaneously with same technique. We then deflated the tourniquet. We obtained hemostasis. Wound debridement was not completed. We closed the primary 3.0 cm laceration after obtaining hemostasis and realized he was on a blood thinner. We also repaired with 4-0 nylon the wound we created without complication. Bulky dressing applied to the thumb and 20 degrees hyperextension at the IPJ and -5 extension at the MPJ. Had 1 second refill and a short-arm splint was applied without complication. Job ID: [id number]
[2019-07-02 05:06] LABS: #Eosinphils 0.3 thou/uL (0.0-0.7); #Lymphocytes 1.4 thou/uL (1.20-3.40); #Monocytes 0.7 thou/uL (0.11-0.59); #Neutrophils 5.4 thou/uL (1.40-6.50); %Basophils 0.1 % (0.0-1.0); %Eosinophils 4.1 % (0.0-10.0); %Lymphocytes 17.8 % (21.0-51.0); Hemoglobin 11.4 g/dL (14.0-18.0); Mean Corpuscular HGB CONC 33.7 g/dL (32.0-36.0); Mean Corpuscular Hemoglobin 32.1 pg (27.0-31.0); Mean Corpuscular Volume 95.3 fL (78.0-98.0); Mean Platelet Volume 7.5 fL (7.4-10.4); Platelet Count 169 thou/uL (130-400); RBC Distribution Width 13.2 % (11.5-14.5); Red Blood Cell (RBC) Count 3.56 mill/uL (4.70-6.10); White Blood Cell (WBC) Count 7.8 thou/uL (4.8-10.8)
[2019-07-02] MEDS: Ketorolac Tromethamine 30 MG/ML VIAL IVP SCH ×2 (05:54→13:07)
[2019-07-02] MEDS ORDERED: FLU VACC TS2019-20(65YR UP)/PF 180 MCG/0.5 ML SYRINGE IM ONE (09:00)
[2019-07-02] MEDS ORDERED: TETANUS AND DIPHTHERIA TOX/PF 0.5 ML DISP.SYRIN IM SCH (09:00)
[2019-07-02] MEDS: Aspirin 81 mg Enteric Coated Tablet PO SCH (09:30)
[2019-07-02 15:57] VITALS: BP 134/63; TEMP 98.2
--- NOTE | 2019-07-07 06:19 | PQF ---
[facility] POST DISCHARGE CLINICAL DOCUMENTATION IMPROVEMENT CLARIFICATION FORM l Todays Date: 07/07/19 l Patients Name PAULINA CREWS l l Admit Date 07/01/19 l Disch Date 07/02/19 Transportation Lead Name Raghav Vegas Email: [email or web address]: [phone] To be completed by Transportation Lead: Present Clinical Indicators - Signs / Symptoms Results and Location in Medical Record [ ] Documentation of: [ ] [ ] Documentation of: [ ] [ ] Documentation of: [ ] [ ] Documentation of: [ ] [ ] Risks [ ] [ ] [ ] Treatment [ ] Laceration of Extensor pollicis brevis and Extensor pollicis longus Query for size (cm) laceration repair of both Extensor pollicis brevis and Extensor pollicis longus [ ] [ ] To be completed by Physician: FRANCISCA NGUYEN The documentation in this patients record requires clarification to ensure coding compliance and accuracy. Check the appropriate box and include in your discharge summary. [ ] [ ] [ ] [ ] Please check this box if this does not apply to this patient [ ] Unable to determine [ ] Other diagnosis: Review the following information and exercise your independent professional judgment in responding to the clarification. Based upon the clinical findings, risk factors, and treatment, please clarify if you are treating one of the above probable or suspected diagnoses. Physician Signature: Date Time MTDD
--- NOTE | 2019-07-14 16:51 | CON ---
DATE OF CONSULTATION: PREOPERATIVE DIAGNOSES: 1. Open proximal phalanx fracture, 3 cm wound right thumb. 2. Wound with extensor pollicis longus, brevis, retinaculum, intrinsic laceration of thumb and multiple cutaneous superficial radial nerve laceration. 3. Diagnosis, which will be pre and postop was saw injury to the hand. HOSPITAL COURSE: The patient was admitted to the hospital almost immediately after a saw wound, leading with "gaping" 4 cm wound across the dorsum of the thumb, which involved all the structures listed above intraoperatively. These include superficial radial nerve, terminal branches x3. Because of the open fracture and the nature and joint involvement with debridement of open joint of right thumb interphalangeal and open fracture of proximal phalanx, which was a saw impaction fracture stable, did not need fixation. He then also underwent open treatment of proximal phalanx fracture with debridement, capsule repair of the right thumb interphalangeal joint, retinacular repair of both the radial and ulnar side of the 2 tendons. Then, both tendons were repaired using multiple [id number] Prolene sutures. After the irrigation and debridement was made sterile. We then saw under magnification repair of cutaneous superficial radial nerve branch, 3 separate branches, closed the 3.0 cm wound and placed him in a short-arm splint. The patient remained in the hospital for 36 hours to get IV antibiotics, did not have fever. He remained in the thumb spica splint with hyperextension of the interphalangeal and 0 degrees MP joint extension. The digit was always pink. It did not lose circulation. He was on dual antibiotics for 24 hours and then would include gentamicin and Ancef and then Ancef for the additional time until discharge. DISCHARGE DISPOSITION: The patient will remain in the splint, thumb spica, was given a sling. Diet would be regular. We will discharge on Bactrim DS prophylactic antibiotics for 7 days. He will follow up in clinic for wound check within 5 days after discharge to make sure in 1 week after incision the infections not occur, but one that could still happen, but the likelihood was lessened by the immediacy of the surgery that day of admission and injury. He was given also Fallon for pain as well as Toradol. The patient will follow up with us as stated. Job ID: [id number]
== END 2019-07-02 18:20 | disposition home or self-care (01) ==
LOC: ERS 14:05 → SDC/OP 17:11 → 2SW 21:12
PROVIDERS: ADMIT Orthopaedic Surgery Hand Surgery; ATTEND Orthopaedic Surgery Hand Surgery
PROC: 01Q60ZZ Repair Radial Nerve, Open Approach (ICD-10-PCS; principal; 2019-07-01)
PROC: 0PBR0ZZ Excision of Right Thumb Phalanx, Open Approach (ICD-10-PCS; 2019-07-01)
PROC: 0RGW07Z Fusion of Right Finger Phalangeal Joint with Autologous Tissue Substitute, Open Approach (ICD-10-PCS; 2019-07-01)
DX: S62.511B Displaced fracture of proximal phalanx of right thumb, initial encounter for open fracture (principal); S66.221A Laceration of extensor muscle, fascia and tendon of right thumb at wrist and hand level, initial encounter; S64.21XA Injury of radial nerve at wrist and hand level of right arm, initial encounter; S66.421A Laceration of intrinsic muscle, fascia and tendon of right thumb at wrist and hand level, initial encounter; I10 Essential (primary) hypertension; E11.9 Type 2 diabetes mellitus without complications; E78.5 Hyperlipidemia, unspecified; F17.220 Nicotine dependence, chewing tobacco, uncomplicated; Z79.82 Long term (current) use of aspirin; Z79.84 Long term (current) use of oral hypoglycemic drugs; Z79.899 Other long term (current) drug therapy; W27.0XXA Contact with workbench tool, initial encounter; Z95.1 Presence of aortocoronary bypass graft
CPT/HCPCS: 36415; 80053; 85025; 85610; 85730; 90471; 90662; 96365; 96366; 96367; 96375; 96376; G0008; G0378; J0690; J1580; J1885; J2001; J2405; J2704; J3010; J3490; S0020; S0028